=== PATIENT | male | born 1940 | race Caucasian/White ===

== ENCOUNTER → 2017-08-06 | Outpatient (CLI) | payer MEDICARE | END | disposition home or self-care (01) | LOC: CFH 09:04 | PROVIDERS: ATTEND Family Medicine | DX: R31.9 Hematuria, unspecified (principal) | CPT/HCPCS: 71046 ==

== ENCOUNTER → 2017-12-13 | Outpatient (CLI) | payer MEDICARE ==
[~2017-12-13] MED LIST: ASPI-621 PO; CO Q10 PO; LIVER DETOX PO; LOSA50TA6 PO; PROSTA-STRONG PO; [UNRECOGNIZED DRUG - OTHER] PO; [UNRECOGNIZED DRUG - OTHER] PO
[2017-12-13 14:40] LABS: ALANINE AMINOTRANSFERASE 41 U/L (12-78); ALBUMIN 3.8 g/dL (3.4-5.0); ANION GAP 6 mmol/L (5-15); CALCIUM 8.7 mg/dL (8.5-10.1); CHLORIDE 102 mmol/L (98-107); CREATININE 1.19 mg/dL (0.7-1.3)
[2017-12-13 14:42] LABS: ALKALINE PHOSPHATASE 54 U/L (45-117); BILIRUBIN,TOTAL 0.6 mg/dL (0.2-1.0); TOTAL PROTEIN 7.5 g/dL (6.4-8.2)
== END | disposition home or self-care (01) ==
LOC: STAR 13:25
PROVIDERS: ATTEND Internal Medicine Geriatric Medicine
DX: Z01.818 Encounter for other preprocedural examination (principal); K75.4 Autoimmune hepatitis
CPT/HCPCS: 36415; 80053; 93005

== ENCOUNTER 2017-12-17 10:47 | Day surgery (SDC) | payer MEDICARE ==
[~2017-12-17] VITALS: Ht 180.3 cm; Wt 78.8 kg
[2017-12-17] MEDS ORDERED: LACTATED RINGERS 1,000 ML IV SCH (11:21)
[2017-12-17] MEDS ORDERED: PROPOFOL 10 MG/ML, 20ML ONE (13:23)
[2017-12-17] MEDS ORDERED: ACETAMINOPHEN 325 MG TABLET PO PRN (14:00)
[2017-12-17] MEDS ORDERED: LABETALOL 5MG/ML, 20ML IV PRN (14:00)
[2017-12-17] MEDS ORDERED: OXYcodone 5 MG/5 ML ORAL.SOL UDC PO PRN (14:00)
[2017-12-17] MEDS ORDERED: ONDANSETRON ODT 8 MG PO PRN (14:00)
[2017-12-17] MEDS ORDERED: FENTANYL PF 100 MCG/2ML IV PRN (14:00)
[2017-12-17] MEDS ORDERED: ALBUTEROL/IPRATROPIUM 2.5MG/0.5MG, 3 ML NPPB PRN (14:00)
[2017-12-17] MEDS ORDERED: hydrALAzine 20 MG/ML, 1ML IV PRN (14:00)
== END 2017-12-17 15:40 ==
LOC: OUT 10:47
PROVIDERS: ATTEND Internal Medicine Geriatric Medicine
DX: K29.50 Unspecified chronic gastritis without bleeding (principal); K21.0 Gastro-esophageal reflux disease with esophagitis; K76.0 Fatty (change of) liver, not elsewhere classified; K75.9 Inflammatory liver disease, unspecified; I10 Essential (primary) hypertension; J45.909 Unspecified asthma, uncomplicated; K21.9 Gastro-esophageal reflux disease without esophagitis; Z87.39 Personal history of other diseases of the musculoskeletal system and connective tissue; Z86.73 Personal history of transient ischemic attack (TIA), and cerebral infarction without residual deficits; Z90.49 Acquired absence of other specified parts of digestive tract; Z98.890 Other specified postprocedural states; Z72.89 Other problems related to lifestyle
CPT/HCPCS: 43239; 43242; 88305; 88307; 88313; J2704; J7120

== ENCOUNTER 2019-07-18 10:13 | Emergency (ER) | payer MEDICARE ==
[~2019-07-18] VITALS: Ht 180.3 cm; Wt 80.6 kg
[~2019-07-18 10:13] MED LIST changes: -ASPI-621 PO; +ASPI81TA45 PO; +LOSA50TA14 PO; -LOSA50TA6 PO
--- NOTE | 2019-07-18 10:53 | NUR ---
1048 code neuro paged [phone] dr singer paged for dr miguel [id number] dr singer returned call and spoke with dr miguel.
[2019-07-18] MEDS ORDERED: SODIUM CHLORIDE FLUSH 10ML SYR IVF ONE (11:00)
[2019-07-18] MEDS ORDERED: OMNIPAQUE 350 MG/ML, 100ML BOTTLE ONE (11:23)
--- NOTE | 2019-07-18 11:35 | NUR ---
PT PRESENTED W MEMORY LOSS THAT IS RESOLVING COMPLETE EROM AND NO FACIAL DROP ANSWERS ALL QUESTIONS WELL ERP TO THE BS CODE NEURO CALLED PT TO CT TWO IVS STARTED IN CT PT THEN RETURNED TO ED NADN THROUGHOUT ON RETURN TO ROOM 3 NEURO MD ON THE TELE MONITOR CONTINUING TO MONITOR
[2019-07-18 11:46] LABS: BASOPHILS # (AUTO) 0.03 x10^3/uL (0-0.1); BASOPHILS % (AUTO) 0 % (0-1); EOSINOPHILS % (AUTO) 4 % (1-7); LYMPHOCYTES # (AUTO) 1.84 x10^3/uL (1-3.4); LYMPHOCYTES % (AUTO) 26 % (22-44); MD NO; MEAN CORPUSCULAR HEMOGLOBIN 31.6 pg (27.5-34.5); MEAN CORPUSCULAR VOLUME 95.7 fL (81-97); MEAN PLATELET VOLUME 8.3 fL (7.4-10.4); MONOCYTES # (AUTO) 0.65 x10^3/uL (0.2-0.8); MONOCYTES % (AUTO) 9 % (2-9); NEUTROPHILS # (AUTO) 4.32 x10^3/uL (1.8-6.8); NEUTROPHILS % (AUTO) 61 % (42-75); PLATELET COUNT 252 x10^3/uL (130-400); RED BLOOD COUNT 4.55 x10^6/uL (4.38-5.82); RED CELL DISTRIBUTION WIDTH 15.3 % (9.4-14.8)
[2019-07-18 11:57] LABS: INTERNATIONAL NORMALIZED RATIO 1.03 (0.93-1.1); PROTHROMBIN TIME 10.8 Seconds (9.6-11.5)
[2019-07-18 12:00] VITALS: BP 160/73
[2019-07-18 12:06] LABS: ALANINE AMINOTRANSFERASE 29 U/L (12-78); ALBUMIN 3.2 g/dL (3.4-5.0); ANION GAP 7 mmol/L (5-15); CALCIUM 8.1 mg/dL (8.5-10.1); CHLORIDE 103 mmol/L (98-107); CREATININE 1.19 mg/dL (0.7-1.3)
[2019-07-18 12:10] LABS: ALKALINE PHOSPHATASE 51 U/L (45-117); BILIRUBIN,TOTAL 0.4 mg/dL (0.2-1.0); TOTAL PROTEIN 6.6 g/dL (6.4-8.2); TROPONIN I < 0.015 ng/mL (0.000-0.045)
--- NOTE | 2019-07-18 12:55 | NUR ---
Patient given discharge instructions and they have confirmed that they understand the instructions. Patient ambulatory with steady gait.
== END 2019-07-18 12:55 | disposition home or self-care (01) ==
LOC: ED 10:59 → EDIP 12:01 → UNDOADMIN 12:01 → ED 12:55
DX: R41.82 Altered mental status, unspecified (principal); I10 Essential (primary) hypertension; Z87.891 Personal history of nicotine dependence
CPT/HCPCS: 36415; 70450; 70496; 70498; 80047; 80053; 82140; 83605; 84484; 85025; 85610; 85730; 87040; 93005; 99284; Q9967